=== PATIENT | male | born 1995 | race Caucasian/White ===

== ENCOUNTER 2020-05-18 22:25 | Outpatient (REF) | payer SELFPAY ==
[2020-05-18 20:13] LABS: HCT 48.3 % (40.0-50.0); HGB 15.8 g/dL (13.5-17.5); MCH 29.3 pg (27.0-33.0); MCHC 32.7 % (32.0-36.0); MCV 89.6 fL (80-95); MPV 10.8 fL (8.0-11.0); Platelet Count 257 10^3/uL (130-400); RBC 5.39 10^6/uL (4.36-5.78); RDW 12.3 % (11.8-14.1); RDW-SD 40.1 fL; WBC 8.66 10^3/uL (4.4-10.8)
[2020-05-18 20:26] LABS: ALT 25 U/L (16-63); AST 18 U/L (15-37); Albumin 4.3 g/dL (3.4-5.0); Alkaline Phosphatase 86 U/L (46-116); Anion Gap 8.5 mmol/L (3-11); BUN 10 mg/dL (7-18); Bilirubin, Total 0.6 mg/dL (0.2-1.0); CO2 28.5 mmol/L (21.0-32.0); CREATININE 1.1 mg/dL (0.70-1.30); Calcium 8.9 mg/dL (8.5-10.1); Chloride 103 mmol/L (98-107); Glucose 104 mg/dL (74-106); Lipase 212 U/L (73-393); Potassium 3.9 mmol/L (3.5-5.1); Sodium 140 mmol/L (136-145); Total Protein 7.6 g/dL (6.4-8.2)
== END 2020-05-18 22:26 | disposition home or self-care (01) ==
LOC: NCHCN 22:25
PROVIDERS: PCP Nurse Practitioner Family; Visit Provider Family Medicine
DX: K27.9 Peptic ulcer, site unspecified, unspecified as acute or chronic, without hemorrhage or perforation (principal)
CPT/HCPCS: 80053; 83690; 85027

== ENCOUNTER 2020-10-10 03:49 | Emergency (ER) | payer SELFPAY ==
--- NOTE | 2020-10-10 03:54 | W.ED.GENAD ---
Discharge Plan Disposition Patient Disposition: HOME Condition: Good Discharge Details Clinical Impression: Foreign body in eye, Corneal rust ring of left eye Primary Care Provider: Kimmy Winters ED Provider: Jose Alfredo Childs [place] Meds and New Rx's Prescriptions: New erythromycin 5 mg/gram (0.5 %) ointment 0.5 inch ophthalmic (eye) Q4H Qty: 3.5 RF: 0 Continued omeprazole 20 mg Capsule,Delayed Release(Dr/Ec) 20 mg PO DAILY RF: 0 Discharge Instructions Instructions: Eye Foreign Body (ED) Additional Instructions: The piece of metal has left a residual rust ring. Use the erythromycin ointment every 4-6 hours. Call [facility] today for follow-up for removal of rust ring. Return to ED for significantly worsening eye pain, change in vision, other concerns. Referrals: [facility] [Outside] Medical Decision Making Small metallic foreign body noted left eye almost center of pupil. Rust ring present. With slit lamp use, after tetracaine drops applied, metal removed with cotton tip applicator. Small metallic pieces seem to be left behind given that this was cable. I was irrigated with saline. Examined under slit lamp again. Residual rust ring present but no visualization of metallic foreign body at this point. Corneal defect present. Erythromycin ointment started. Patient referred to [facility] for follow-up and removal of rust ring. Return to ED for any change in vision, worsening eye pain, other concerns. Tetanus updated prior to discharge. HPI General Mode of arrival: ambulatory. Date/Time Provider Initiated Documentation: 10/10/20 03:53. Limitations to Documentation: no limitations. Information obtained by: patient and RN notes reviewed. HPI Narrative: Patient presents to ED with left eye pain secondary to getting a piece of metal in it this afternoon. He has been attempting to remove it all evening. He has been unsuccessful. Comes in early this morning because of continued pain and foreign body sensation. This is a piece of scatter table that got in his eye as he was trying to cut through the cable. He is unsure of his last tetanus. Related Data Home Medications Medication Instructions Recorded Confirmed erythromycin 0.5 inch OPHTHALMIC (EYE) Q4H #3.5 10/10/20 g omeprazole 20 mg PO DAILY 10/10/20 10/10/20 Previous Rx's Medication Instructions Recorded erythromycin 0.5 inch OPHTHALMIC (EYE) Q4H #3.5 10/10/20 g Allergies Allergy/AdvReac Type Severity Reaction Status Date / Time No Known Allergies Allergy Unverified 10/10/20 04:06 Review of Systems Constitutional Constitutional: Denies fever(s) and Denies headache(s) Eyes Eyes: Denies change in vision and Reports eye pain ENT Ears, Nose, Mouth, and Throat: Denies headache(s) Cardiovascular Cardiovascular: Denies dyspnea Respiratory Respiratory: Denies cough and Denies dyspnea Neurologic Neurologic: Denies headache(s) PFSH Medical History Migraine Social History Smoking/Tobacco Use Status: Current every day Tobacco Type: cigarettes Smoking risk assessment performed?: Yes Alcohol Intake: current Alcohol Intake frequency: a few times a month Drug use: Occasionally Substance use type: marijuana Do you feel safe at home: Yes Do you feel safe in your relationship?: Yes Exam Const General: cooperative, comfortable and no acute distress HENMT Head: normocephalic and atraumatic Face and sinus: normal facial exam Eyes Periorbital: periorbital findings normal Eyelids: eyelids normal Conjunctivae: conjunctival abnormality left conjunctival injection Sclera: sclerae normal Cornea: corneas abnormal on the left abrasion and foreign body metallic and with rust ring present Pupils: PERRL EOM: EOM intact bilaterally Neck Neck: trachea midline and supple Resp Effort & Inspection: normal respiratory effort Neuro General: moves all extremities Cognition: normal cognition Speech: speech normal Gait: normal gait Procedures FB Removal Eye Location: eye (L) Topical anesthetic used: tetracaine Foreign body: metal Evidence of corneal penetration: No Technique: irrigation and cotton tip swab Procedure performed under: slit-lamp Post-procedure medication: ophthalmic antibiotic Patient tolerated procedure: well Complications: residual rust ring
[2020-10-10 03:58] VITALS: BP 148/96; PULSE 77; RESP 16; TEMP 36.4; O2SAT 100
[2020-10-10] MEDS: Tetracaine 0.5% 4 ML BTL (04:11)
[2020-10-10] MEDS: Erythromycin Ophth Oint 3.5 GM TUBE (04:13)
== END 2020-10-10 04:55 | disposition home or self-care (01) ==
PROVIDERS: Emergency Provider Emergency Medicine; PCP Nurse Practitioner Family
DX: T15.02XA Foreign body in cornea, left eye, initial encounter (principal); W45.8XXA Other foreign body or object entering through skin, initial encounter
CPT/HCPCS: 90471; 99283

== ENCOUNTER 2021-09-28 10:55 | Emergency (ER) | payer SELFPAY ==
[2021-09-28 11:00] VITALS: BP 147/74; PULSE 81; RESP 16; TEMP 36.5; O2SAT 99
--- NOTE | 2021-09-28 11:19 | ED.GENADUL_ITS ---
Discharge Plan Disposition Patient Disposition: HOME Condition: Improving Discharge Details Clinical Impression: Strain of muscle of right groin region Primary Care Provider: Kimmy Winters ED Provider: Adair Díaz Home Meds and New Rx's Prescriptions: New diclofenac sodium [Voltaren Arthritis Pain] 1 % gel 2 g topical BID 7 Days Qty: 100 0RF Rx Instructions: apply to single elbow, wrist or hand; for hand includes palm/fingers/back of hand Discharge Instructions Instructions: Muscle Strain (ED) Additional Instructions: Jg bandage while awake and out of bed. This should be removed for bedtime and sleeping. Apply heat and gentle massage to area. Voltaren cream twice daily as prescribed, this likely will be available [id number]. Work note enclosed. Return for any acute concerns or if you develop worsening pain. 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 There is no evidence of a hernia, of which he was concerned. He has reproducible tenderness along the muscle belly and its origin on the anterior pelvic brim.. Patient placed in Jg bandage, will have him off work for 2 days and light duty for 1 week. Discussed with him home management and return precautions HPI General Mode of arrival: ambulatory . Date/Time Provider Initiated Documentation: 09/28/21 10:56 . Limitations to Documentation: no limitations . Information obtained by: patient . History of Present Illness 26 year old M presents to the emergency department with the chief complaint of Right groin pain, no mass, described as moderate, Quality is described as dull and constant, and is localized to the right and lower extremity. Patient reports no radiation. Patient started experiencing this hour(s) and it has been constant. Rest improves symptom(s), Movement worsens symptoms . Patient notes denies rash, syncope and weakness. Patient did receive the following treatments prior to arrival, none Related Data Home Medications Medication Instructions Recorded Confirmed diclofenac sodium 1 % topical gel 2 g topical BID 7 days #100 grams 09/28/21 (Voltaren Arthritis Pain) Previous Rx's Medication Instructions Recorded diclofenac sodium 1 % topical gel 2 g topical BID 7 days #100 grams 09/28/21 (Voltaren Arthritis Pain) Allergies Allergy/AdvReac Type Severity Reaction Status Date / Time No Known Allergies Allergy Unverified 10/10/20 04:06 General Stated Complaint: Orthopedic DENISE: 4 Review of Systems Narrative: No rash, no change to urine, otherwise well, 6 systems were reviewed and - PFSH All Active Problems (Updated 09/28/21 @ 11:22 by Adair Díaz MD) Foreign body in eye (Acute) Corneal rust ring of left eye (Acute) Strain of muscle of right groin region (Acute) Medical History Migraine Social History Smoking/Tobacco Use Status: Former Tobacco Use Smoking risk assessment performed?: Yes Alcohol Intake: never Drug use: Occasionally Substance use type: marijuana Do you feel safe at home: Yes Do you feel safe in your relationship?: Yes Exam Narrative Exam Narrative: GEN: awake, alert, oriented 3. Pleasant, well groomed, interactive. HEAD: Normocephalic, atraumatic ENT: Mucous membranes moist, oropharynx unremarkable, External ear exam unremarkable EYES: PERRL, EOMI NECK: Full ROM, no GENE, no menigismus CHEST/RESP: No respiratory ABDOMEN: Soft, nontender, no mass. +Bowel sounds. Testes descended bilaterally. No inguinal hernia. Tenderness along the right medial thigh and origin of the groin muscles EXT: Full ROM, no edema, no rash, right medial thigh tenderness as above Neuro: Grossly normal neurologic exam, conversant, interactive. Psych: Speech fluent, thoughts congruent, affect normal Course Vital Signs Vital signs: Vital Signs Temperature 36.5 C 09/28/21 11:00 Pulse 81 09/28/21 11:00 Respiratory Rate 16 09/28/21 11:00 Blood Pressure 147/74 H 09/28/21 11:00 Pulse Oximetry 99 09/28/21 11:00 Temperature 36.5 C 09/28/21 11:00 Pulse 81 09/28/21 11:00 Respiratory Rate 16 09/28/21 11:00 Respiratory Effort 09/28/21 11:04 Blood Pressure 147/74 H 09/28/21 11:00 Pulse Oximetry 99 09/28/21 11:00 Pain Level 3 09/28/21 11:00 Comment 09/28/21 11:00
== END 2021-09-28 11:28 | disposition home or self-care (01) ==
PROVIDERS: Emergency Provider Emergency Medicine; PCP Nurse Practitioner Family
DX: S39.011A Strain of muscle, fascia and tendon of abdomen, initial encounter (principal); Z87.891 Personal history of nicotine dependence; X58.XXXA Exposure to other specified factors, initial encounter
CPT/HCPCS: 99282

== ENCOUNTER 2021-10-30 08:04 | Emergency (ER) | payer SELFPAY ==
[2021-10-30 08:10] VITALS: BP 138/90; PULSE 79; RESP 14; TEMP 36.8; O2SAT 100
--- NOTE | 2021-10-30 08:28 | ED.GENADUL_ITS ---
Discharge Plan Disposition Patient Disposition: HOME Condition: Stable Discharge Details Clinical Impression: Back pain, Muscle spasm, Lumbar disc herniation Primary Care Provider: Kimmy Winters ED Provider: Aure Kramer Discharge Instructions Instructions: Muscle Spasm (ED), Back Pain (ED) Additional Instructions: Your labs are reassuring here today. Your MRI shows a small L5-S1 disc herniation patient without significant nerve compression. Your back pain is likely associated with your chronic discomfort in the setting of acute muscle spasms. Please encourage hydration. You may continue with Tylenol and ibuprofen as needed for discomfort. Please take as directed on the packaging. You may augment this with the methocarbamol as prescribed to help with muscle spasm. Please not drive will take this medication, keep out of reach of children and use only as directed. He may also try topical agents such as heat, ice, Lidoderm patch. I have referred you to physical therapy, referral is attached. Please follow-up with primary care in the next 2 weeks for reevaluation. If you develop increased pain, weakness, change in bowel or bladder habits, sensation changes or other new/worsening symptoms seek care urgently once again. Please try to avoid heavy lifting. Stand Alone Forms: Physical Therapy Referral, Work Release Referrals: Kimmy Winters [Primary Care Provider] - Discharge Data Discharge Date/Time-TO BE ENTERED AT DEPARTURE: 10/30/21 15:48 Medical Decision Making Patient is a pleasant 26-year-old gentleman with past medical history signi ficant for herniated disc of lumbar spine, presenting today with chief complaint of back pain. He describes an acute on chronic discomfort. Diagnosed with herniated disc several years ago. States he was treated with muscle relaxers, steroids and physical therapy and pain has been manageable since then. However, few months ago he began having increased discomfort and indicates that both the mid thoracic as well as the upper lumbar spine is area of maximal discomfort. He states that the pain has progressively worsened to the point that now he is having difficulty going to work or getting out of bed. States over the weekend he began having rigors and sweats. Did not check his temperature. Endorses anorexia. No change in bowel or bladder habits. Patient denies any new trauma to the back although he does state that he and his significant other are moving as she is , he had to do all of the heavy lifting and believes this may have contributed to the increased discomfort. 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 Reports that over the past week he has had increasing weakness and tremulousness in the RLE. No sensory changes or change in bowel/bladder habits. Also endorses some shooting pains to the left hand which is new for him. Reports it primarily goes between the digits. Patient denies any IV drug abuse, immunocompromising risk factors. No recent illness. On exam, patient appears uncomfortable. No other evidence to suggest focal infection and patient denies any sick contacts. Lungs are clear, normal cardiac exam, abdomen is benign. No saddle paresthesias. With strength testing of lower extremities, patient does have tremulous and weaker ability to flex at the hip on the right side compared to the left. With palpation on midline, patient had an area of mid thoracic and upper lumbar that were so point tender if he became lightheaded and had to lay down. We will continue remaining of the exam after patient's been able to recover. Patient did drive himself here today, is hoping to able to drive home. We will give Tylenol and ibuprofen as well as lidocaine patch to help with discomfort. Plan steroids at this time until I have further information. I am concerned for potential epidural abscess and feel that moving forward with MRI would be appropriate at this time. I did touch base with radiologist who recommended plain film in adjunct to the MRI. Patient also reports he does not have insurance and I have asked her care management team to help with this. Alternative to epidural abscess being the source of fevers, also considered more of a metabolic cause as the patient reports he does eat frequently, has always had low BMI and tends to be very sweaty. Possible thyroid disorder, mom does have history of thyroid disorder for the patient, we will screen with a TSH and reflex T4. Radiologist recommends both plain films and MRI. Care management at bedside to discuss patient not actively haing insurance, he is interested in getting help with this. Labs reviewed, no significant abnormalitiees. Plain films reviewed by radiolgoist: FINDINGS: Three views of the thoracic spine and five views of lumbosacral spine were obtained.? The intervertebral disc spaces appear fairly well maintained throughout.? No erosive or destructive bony lesion seen.? No evidence of spondylolysis or spondylolisthesis in the lumbar region. IMPRESSION: Negative examination of thoracic and lumbar spine. FINDINGS: MR examination of thoracic spine was performed according to the usual protocol with additional pre and post contrast T1 fat sat imaging.? No bony signal abnormality seen.? No enhancing lesion identified in thoracic region.? Normal appearance and signal spinal cord with no focal lesion identified.? No disc herniation seen.? No central canal spinal stenosis.? No neural foraminal stenosis.? No epidural collection or enhancement. IMPRESSION: Negative thoracic spine MRI including pre and post contrast T1 fat sat imaging. MRI reviewed by radiologist: FINDINGS: MR examination lumbosacral spine was performed according to the usual protocol with additional post contrast axial and sagittal T1 weighted imaging. The conus medullaris appears intact. No significant bony signal abnormality seen.? No enhancing lesion identified. There is a mild central disc herniation which is broad-based involving L5-S1 intervertebral disc.? Otherwise the discs are unremarkable in appearance.? There may be mild impingement on the left S1 nerve root by the L5-S1 disc herniation.? Please correlate clinically. No central canal spinal stenosis.? No neural foraminal stenosis.? No epidural enhancement. IMPRESSION: Mild L5-S1 disc herniation, please see above discussion.? No other significant findings. FINDINGS: Three views of the thoracic spine and five views of lumbosacral spine were obtained.? The intervertebral disc spaces appear fairly well maintained throughout.? No erosive or destructive bony lesion seen.? No evidence of spondylolysis or spondylolisthesis in the lumbar region. IMPRESSION: Negative examination of thoracic and lumbar spine Discussed with patient. His mom is now at bedside. We discussed findings. Likely exacerbvation of chronic injury. Will give muscle relaxer to help with discomfort. Mom is going to drive home. He voices furstrations about hte lack of findings, we discussed the difficulty with chronic back pain. The pain sounds to be more chronic and consistent at this time. We did discuss referral to pain managmeent for the chronic pain. For now, will refer to PT, have him try to reduce heavy lifting for the time being. 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 I recommended that he discuss how to lift in a more protective and appropriate manner to prevent further injury. I encouraged close f/u with PCP. Advised he continue with OTC options, heat/ice, massage. Will give muscle relaxer to help with spasm/pain. Advised not to drive with this or drink ETOH. Strict return precuations discussed. Encouraged close f/u. All of his quesitons and concerns were addressed, he is in agreement with this plan. HPI General Mode of arrival: ambulatory . Date/Time Provider Initiated Documentation: 10/30/21 08:17 . Limitations to Documentation: no limitations . Information obtained by: patient, RN notes reviewed and old records reviewed . History of Present Illness 26 year old M presents to the emergency department with the chief complaint of back pain, described as severe and similar to prior episodes (has hx of herniated discs), with intensity rated at 10. Quality is described as sharp, and is localized to the back. Patient extremity. Patient started experiencing this month(s) (has had chronic pain for years with exacerbation over recent months) and it has been constant. Immobilization improves symptom(s), Movement worsens symptoms . Patient notes fever/chills and weakness (feels that RLE is becoming more weak and has increased pain the LLE); denies chest pain, cough, diaphoresis, malaise, nausea/vomiting, rash and shortness of breath. Patient did receive the following treatments prior to arrival, none Related Data Allergies Allergy/AdvReac Type Severity Reaction Status Date / Time No Known Allergies Allergy Unverified 10/10/20 04:06 General Stated Complaint: Nk/Back Pain DENISE: 4 Review of Systems Constitutional Constitutional: Reports as per HPI, Denies chills, Denies frequent falls and Denies headache(s) ENT Ears, Nose, Mouth, and Throat: Denies headache(s) Cardiovascular Cardiovascular: Denies chest pain, Denies dyspnea and Denies dyspnea on exertion Respiratory Respiratory: Denies cough, Denies dyspnea and Denies dyspnea on exertion Gastrointestinal Gastrointestinal: Denies abdominal pain, Denies change in bowel habits and Denies fecal incontinence Genitourinary Genitourinary: Reports as per HPI, Denies urinary hesitancy and Denies urinary incontinence Musculoskeletal Musculoskeletal: Reports as per HPI, Reports back pain and Reports stiffness Integumentary/Breasts Skin/Breast: Reports as per HPI and Denies rash Neurologic Neurologic: Reports as per HPI, Denies frequent falls, Denies headache(s) and Denies localized weakness PFSH All Active Problems (Updated 10/30/21 @ 15:08 by SHELTON Castrejon) Foreign body in eye (Acute) Corneal rust ring of left eye (Acute) Back pain (Acute) Muscle spasm (Acute) Lumbar disc herniation (Acute) Medical History Migraine Social History Smoking/Tobacco Use Status: Former Tobacco Use Smoking risk assessment performed?: Yes Alcohol Intake: current Alcohol Intake frequency: a few times a month Drug use: Daily Substance use type: marijuana Do you feel safe at home: Yes Do you feel safe in your relationship?: Yes Exam Const General: cooperative, healthy appearing, uncomfortable, no acute distress, well developed and well groomed Nutritional Appearance: average body habitus and well nourished Orientation: alert and awake Eyes General: appearance normal, both eyes and all related structures Neck Neck: normal visual inspection, full ROM, no lymphadenopathy and no meningeal signs Resp Effort & Inspection: normal respiratory effort and able to speak in complete sentences Auscultation: clear to auscultation bilaterally, no rales, no rhonchi and no wheezes Cardio Rate: regular rate Rhythm: regular rhythm Heart Sounds: S1 normal and S2 normal GI Inspection: normal to inspection Palpation: soft, no hepatosplenomegaly and nontender Back/Spine/Pelvis Back: no CVA tenderness Cervical Spine: normal cervical lordosis, cervical ROM normal, No cervical muscular tenderness, No pain with cervical ROM, No cervical spasm, No cervical spinal tenderness and No step off deformity Thoracic/Lumbar Spine: thoracic and lumbar spine normal to inspection, No thoraco-lumbar ROM normal, No straight leg raise negative bilaterally (positive on RLE), pain with thoraco-lumbar ROM, paraspinal tenderness (fairly diffuse pain, worse along left paraspinal area), thoracic spinal tenderness and lumbar spinal tenderness Pelvis: no pain with anterior-posterior compression and no pain with lateral compression Skin General skin exam: no rashes or lesions noted Neuro General: patient alert and patient awake Cognition: normal cognition Speech: speech normal Gait: normal gait Motor: strength not 5/5 throughout (4/5 on RLE with signficant pain), no movement abnormalities noted and no fasciculations Sensory Exam: no sensory deficits noted (no saddle paresthesias) DTR's: Rt Patellar: 2+, Lt Patellar: 2+, Rt Ankle: 2+ and Lt Ankle: 2+ Extrem General: normal to inspection, full ROM, capillary refill normal, no joint enlargement, no pedal edema, no calf tenderness and normal gait Psych Appearance: grossly normal and well kempt Mental Status: mental status grossly normal Speech and Movement: speech and movement normal Course Vital Signs Vital signs: Vital Signs Temperature 36.8 C 10/30/21 08:10 Pulse 79 10/30/21 08:10 Respiratory Rate 14 10/30/21 08:10 Blood Pressure 138/90 10/30/21 08:10 Pulse Oximetry 100 10/30/21 08:10 Temperature 36.8 C 10/30/21 08:10 Temperature Source Tympanic 10/30/21 08:10 Pulse 79 10/30/21 08:10 Respiratory Rate 14 10/30/21 08:10 Respiratory Effort Non-Labored 10/30/21 08:13 Blood Pressure 138/90 10/30/21 08:10 Blood Pressure Position Sitting 10/30/21 08:10 Pulse Oximetry 100 10/30/21 08:10 Oxygen Delivery Method Room Air 10/30/21 08:10 Oxygen Flow Rate 0 10/30/21 08:10 Pain Level 7 10/30/21 08:13 PAWSS Have you Been Recently Intoxicated or Drunk Within the Last 30 days?: No Have you Ever Experienced Previous Episodes of Alcohol Withdrawal?: No Have you ever Experienced Withdrawal Seizures?: No Have you ever Experienced Delirium Tremens(DT)s?: No Have you ever undergone [facility]: No Have you ever Experienced Blackouts?: No Have you ever Combined Alcohol with other Downers within the last 90 days?: No Have you ever Combined Alcohol with any other Substance of Abuse during the last 90 days?: No Positive Blood Alcohol level on Presentation? [PCS.BAL]: No Evidence of Increased Autonomic Activity (i.e. HR>120, tremor, sweating, agitation, nausea)?: No Result: 0
--- NOTE | 2021-10-30 09:00 | DI.MRI_ITS ---
Exam(s) MR LUMBAR SPINE WO/W EXAM: MR LUMBAR SPINE WO/W CLINICAL HISTORY: midline pain, fever, RLE weakness. TECHNIQUE: Multiplanar multisequence MRI was performed. COMPARISON: No exams were available for comparison FINDINGS: MR examination lumbosacral spine was performed according to the usual protocol with additional post c ontrast axial and sagittal T1 weighted imaging. The conus medullaris appears intact. No significant bony signal abnormality seen. No enhancing lesion identified. There is a mild central disc herniation which is broad-based involving L5-S1 intervertebral disc. Ot herwise the discs are unremarkable in appearance. There may be mild impingement on the left S1 nerve root by the L5-S1 disc herniation. Please correlate clinically. No central canal spinal stenosis. No neural foraminal stenosis. No epidural enhancement. IMPRESSION: Mild L5-S1 disc herniation, please see above discussion. No other significant findings. DATA REPOSITORY:
--- NOTE | 2021-10-30 09:00 | DI.MRI_ITS ---
Exam(s) MR THORACIC SPINE WO/W EXAM: MR THORACIC SPINE WO/W CLINICAL HISTORY: midline pain, fever, RLE weakness. TECHNIQUE: Multiplanar multisequence MRI was performed. COMPARISON: No exams were available for comparison FINDINGS: MR examination of thoracic spine was performed according to the usual protocol with additional pre an d post contrast T1 fat sat imaging. No bony signal abnormality seen. No enhancing lesion identified in thoracic region. Normal appearance and signal spinal cord with no focal lesion identified. No d isc herniation seen. No central canal spinal stenosis. No neural foraminal stenosis. No epidural c ollection or enhancement. IMPRESSION: Negative thoracic spine MRI including pre and post contrast T1 fat sat imaging. DATA REPOSITORY:
--- NOTE | 2021-10-30 09:00 | DI.RAD_ITS ---
Exam(s) XR LUMBAR SPINE COMPLETE XR THORACIC SPINE COMPLETE EXAM: XR THORACIC SPINE COMPLETE CLINICAL HISTORY: midline pain, fever, RLE weakness TECHNIQUE: COMPARISON: CR XR LUMBAR SPINE COMPLETE from 10/30/2021 FINDINGS: Three views of the thoracic spine and five views of lumbosacral spine were obtained. The interverteb ral disc spaces appear fairly well maintained throughout. No erosive or destructive bony lesion seen . No evidence of spondylolysis or spondylolisthesis in the lumbar region. IMPRESSION: Negative examination of thoracic and lumbar spine. RADIATION DOSE DELIVERED: Total DLP
--- NOTE | 2021-10-30 09:25 | CMPROGNOTE_ITS ---
- If Service Date Differs Date of service: 10/30/21 Time of Service: 09:25 Care Management Progress Note Benjamín presents in the ED for neck and back pain. At the request of ED provider, KESHAWN meets with Benjamín as he is currently uninsured. Benjamín reports that he works for [employer] and states his employer does not offer health insurance. With his verbal ok, KESHAWN contacts [facility] and speaks with Tish who is agreeable to outreaching to Benjamín while he is in the ED to help him explore his insurance options. KESHAWN also provides Benjamín with a Patient Assistance Application and advises him that he can call the business office at the number on the application to set up a payment plan, should he have a balance remaining after the application is processed.
[2021-10-30] MEDS: Lactated Ringers 1,000 ML 1000 ML IV (09:52)
[2021-10-30 09:54] LABS: Abs Immature Grans 0.01 10^3/uL (0.0-0.06); Absolute Basophil Count 0.03 10^3/uL (0.0-0.2); Absolute Eosinophil Count 0.01 10^3/uL (0.0-0.7); Absolute Monocyte Count 0.52 10^3/uL (0.1-0.8); Absolute Neutrophil Count 1.74 10^3/uL (1.2-6.7); Basophils % 0.8; Eosinophils % 0.3; HCT 49.9 % (40.0-50.0); HGB 16.2 g/dL (13.5-17.5); Immature Grans % 0.3; Lymphocytes % 39.4; MCH 29.1 pg (27.0-33.0); MCHC 32.5 % (32.0-36.0); MCV 90 fL (80-95); Monocytes % 13.6; Neutrophils % 45.6; Platelet Count 188 10^3/uL (130-400); RBC 5.57 10^6/uL (4.36-5.78); RDW 12.2 % (11.8-14.1); RDW-SD 40.2 fL; WBC 3.81 10^3/uL (4.4-10.8)
[2021-10-30 09:59] LABS: ESR 2 mm/hr (0-15)
[2021-10-30 10:26] LABS: ALT 24 U/L (16-63); AST 22 U/L (15-37); Albumin 4.5 g/dL (3.4-5.0); Alkaline Phosphatase 77 U/L (46-116); Anion Gap 7.6 mmol/L (3-11); BUN 16 mg/dL (7-18); Bilirubin, Total 0.3 mg/dL (0.2-1.0); C-Reactive Protein 0.16 mg/dL (0.0-0.3); CO2 30.4 mmol/L (21.0-32.0); CREATININE 1.3 mg/dL (0.70-1.30); Calcium 9.2 mg/dL (8.5-10.1); Chloride 99 mmol/L (98-107); Glucose 94 mg/dL (74-106); Sodium 137 mmol/L (136-145); TSH (W/Ref FT4) 3.19 uIU/mL (0.36-3.74); Total Protein 8.4 g/dL (6.4-8.2)
--- NOTE | 2021-10-30 11:34 | PDOC.ERCMPRO ---
- If Service Date Differs Date of service: 10/30/21 Time of Service: 11:35 Care Management Progress Note SBIRT Screen: Positive for cannabis and nicotine. Pt reports significant hx of drug use including opiates but stopped ten years ago. Pt currently endorses daily cannabis use which he states helps him with pain. We discussed concentrations and dosages with regard to dabbing . Pt states he quit dabbing because it was not having the desired effect for pain management. We discussed pros and cons of medicinal cannabis and Pt was encouraged to follow up with his PCP. Pt notes he is hoping to quit nicotine and cut down on cannabis use anticipating the of a child soon. Pt was provided with resources for counseling and tobacco cessation.
[2021-10-30] MEDS: Ibuprofen 600 MG TAB PO (12:20)
[2021-10-30] MEDS: Acetaminophen 500 MG TAB 1000 MG PO (12:20)
[2021-10-30] MEDS: Normal Saline Flush 10 ML SYR IVP (13:01)
[2021-10-30] MEDS: Lidocaine 5% Patch 1 PATCH TP (15:35)
== END 2021-10-30 15:48 | disposition home or self-care (01) ==
PROVIDERS: Emergency Provider Physician Assistant; PCP Nurse Practitioner Family
DX: M54.9 Dorsalgia, unspecified (principal); M51.26 Other intervertebral disc displacement, lumbar region; M62.830 Muscle spasm of back; R50.9 Fever, unspecified; R53.1 Weakness
CPT/HCPCS: 36415; 72158; 80053; 85652; 96360; 99284; 72072; 72110; 72157; 84443; 85025; 86140

== ENCOUNTER 2023-10-29 19:16 | Emergency (ER) | payer SELFPAY ==
[2023-10-29 19:22] VITALS: BP 125/77; PULSE 84; RESP 22; TEMP 36.7; O2SAT 100
[2023-10-29 19:36] VITALS: BP 125/77; PULSE 84; RESP 22; TEMP 36.7; O2SAT 100
[2023-10-29] MEDS: Ondansetron 4 MG/2 ML VIAL (19:50)
[2023-10-29] MEDS: Lactated Ringers 1,000 ML 1000 ML IV ×2 (20:00→21:46)
--- NOTE | 2023-10-29 20:07 | ED.GENADUL_ITS ---
Discharge Plan Disposition Patient Disposition: Home Condition: Good Discharge Details Clinical Impression: Colitis Primary Care Provider: Kimmy Treadwell ED Provider: Maya Miranda Home Meds and New Rx's Prescriptions: No Action No Known Home Meds Discharge Instructions Instructions: Colitis Additional Instructions: A referral has been made for you to establish care with a primary care provider. If you are unable to have an appointment with PCP within the week, I recommend that you have reassessment performed at the emergency department to make sure y ou are feeling significantly better Return tomorrow morning with stool cultures per instructions by the nurse. We will call you with results of the cultures, which would take a couple of days. Please use the Zofran provided as needed for nausea/vomiting. For discomfort you may use 600 mg ibuprofen 3 times a day and Tylenol 650 mg 3 times a day. Be sure to stay very well-hydrated, drinking plenty of Pedialyte or Gatorlyte, eating a gentle diet as tolerated. Return to emergency care if you develop new severe abdominal pain, blood in your stool or vomit, decreased urine output, feeling very weak, or if you are very worried and need to be rechecked again immediately HPI General Date/Time Provider Initiated Documentation: 10/29/23 19:24 . HPI Narrative: Benjamín is a 28-year-old male who presents to the emergency department today for evaluation of abdominal pain accompanied by shaking chills and nausea/vomiting/diarrhea. He reports that he started feeling unwell yesterday around 9 AM, developed lower back pain since moved to his umbilical area, described as a stabbing pain that is constant but has waves of increasing pain. He also has had countless episodes of diarrhea since yesterday, yellow in color. Today he developed vomiting, has vomited 3 times. No blood in stool or emesis. He reports some dizziness since this morning, says his last p.o. intake was last night. No recorded fever, though he has had shaking chills. Denies congestion, sore throat, cough, chest pain, difficulty breathing, change in urine output, blood in urine. No history of abdominal surgeries or known digestive disorders. He does work in a slaughterhouse, says that it is not uncommon for people to get sick with staph or E. coli. Denies regular alcohol use. Physical exam remarkable for tacky mucous membranes. Patient does have diffuse abdominal tenderness, most notably in the left upper quadrant, epigastric area, and umbilical area. No rebound tenderness/guarding, abdominal ecchymosis, or rigidity. Easy work of breathing, lung sounds clear bilaterally. Normal heart sounds. No CVA tenderness. DDx includes but not limited to: Partial bowel obstruction, appendicitis, pancreatitis, viral gastroenteritis, bacterial gastroenteritis, dehydration, electrolyte imbalance, kidney stones, pyelonephritis I independently interpreted the following tests: CBC, CMP, lipase all reassuring. UA significant for protein ketones, consistent with dehydration. Patient unable to provide stool sample, will provide outpatient sample. CT abdomen/pelvis consistent with colitis. While in the emergency department, Benjamín received IV fluids, 2 L LR. He also received Toradol and Zofran with good improvement of nausea/vomiting and abdominal discomfort. As patient is at high risk of Shiga toxin producing E. coli, discussed with patient holding off on empiric antibiotic treatment until this is ruled out. He is agreeable with plan of care, recommend good hydration at home with Tylenol/ibuprofen and Zofran as needed. Reviewed red flags indicate need for return to emergency care. Related Data Home Medications ?Medication ?Instructions ?Recorded ?Confirmed Unknown [No Known Home Meds] 10/29/23 10/29/23 Allergies Allergy/AdvReac Type Severity Reaction Status Date / Time No Known Allergies Allergy Unverified 10/29/23 19:30 General Stated Complaint: Abd Prob DENISE: 3 Review of Systems Narrative: see HPI Exam Const General: cooperative, comfortable and other (appears weak, tired) HENMT Face and sinus: dry mucous membranes Resp Effort & Inspection: normal respiratory effort and able to speak in complete sentences Auscultation: clear to auscultation bilaterally Cardio Rate: regular rate Rhythm: regular rhythm GI Inspection: normal to inspection and non-distended Palpation: soft and tender in the epigastrum and in the LUQ Auscultation: normal bowel sounds Course Vital Signs Vital signs: Vital Signs Temperature 36.7 C 10/29/23 19:22 Pulse 84 10/29/23 19:22 Respiratory Rate 22 10/29/23 19:22 Blood Pressure 125/77 10/29/23 19:22 Pulse Oximetry 100 10/29/23 19:22 Temperature 36.7 C 10/29/23 19:36 Temperature Source Temporal Artery Scan 10/29/23 19:36 Pulse 84 10/29/23 19:36 Respiratory Rate 22 10/29/23 19:36 Respiratory Effort Normal, Non-Labored 10/29/23 19:30 Blood Pressure 125/77 10/29/23 19:36 Pulse Oximetry 100 10/29/23 19:36 Oxygen Delivery Method Room Air 10/29/23 19:36 Oxygen Flow Rate 0 10/29/23 19:22 Pain Level 7 10/29/23 19:36 Medical Decision Making Imaging Data Radiologic Study: Radiologist's impression: PROCEDURE INFORMATION: Exam: CT Abdomen And Pelvis With Contrast Exam date and time: 10/29/2023 8:52 PM Age: 28 years old Clinical indication: Abdominal pain; Periumbilical TECHNIQUE: Imaging protocol: Computed tomography of the abdomen and pelvis with contrast. Radiation optimization: All CT scans at this facility use at least one of these dose optimization techniques: automated exposure control; mA and/or kV adjustment per patient size (includes targeted exams where dose is matched to clinical indication); or iterative reconstruction. Contrast material: OMNIPAQUE 350; Contrast volume: 100 ml; Contrast route: INTRAVENOUS (IV); COMPARISON: MR THORACIC SPINE WO/W 10/30/2021 1:16 PM FINDINGS: Lungs: Visualized lung bases are clear. Liver: Normal. No mass or intrahepatic biliary ductal dilatation. Gallbladder and biliary ducts: Normal. No calcified stones. No ductal dilation. Pancreas: Normal. No mass or ductal dilation. Spleen: Normal. No splenomegaly. Adrenal glands: Normal. No mass. Kidneys and ureters: Normal. No hydronephrosis, calculus, cyst or mass. Stomach and bowel: Stomach and small bowel are normal. The proximal colon is. The distal colon shows diffuse wall thickening without dilatation. Appendix: Normal appendix visualized in the right lower quadrant. Intraperitoneal space: Unremarkable. No free air. No significant fluid collection. Vasculature: Unremarkable. No abdominal aortic aneurysm or significant atherosclerosis. Lymph nodes: No enlarged retroperitoneal or mesenteric lymph nodes. Urinary bladder: No mass or wall thickening. Reproductive: Unremarkable as visualized. Bones/joints: Unremarkable. No acute fracture. No lytic lesion. Soft tissues: Unremarkable. IMPRESSION: Colonic wall thickening may reflect colitis Quality:SDOH Health Related Social Needs: No Data to Display PFSH All Active Problems (Updated 10/29/23 @ 23:26 by Maya M Shaniqua Gold) Colitis (Acute) Corneal rust ring of left eye (Acute) Foreign body in eye (Acute) Medical History Migraine Social History Smoking/Tobacco Use Status: Former Tobacco Use Smoking risk assessment performed?: Yes Alcohol Intake: current Alcohol Intake frequency: a few times a month Drug use: Daily Substance use type: marijuana Do you feel safe at home: Yes Do you feel safe in your relationship?: Yes
[2023-10-29 20:10] LABS: Abs Immature Grans 0.01 10^3/uL (0.0-0.06); Absolute Basophil Count 0.03 10^3/uL (0.0-0.2); Absolute Eosinophil Count 0.01 10^3/uL (0.0-0.7); Absolute Lymphocyte Count 0.59 10^3/uL (1.2-3.4); Absolute Monocyte Count 0.54 10^3/uL (0.1-0.8); Absolute Neutrophil Count 8.32 10^3/uL (1.2-6.7); Basophils % 0.3 %; Eosinophils % 0.1 %; HCT 47.8 % (40.0-50.0); HGB 15.9 g/dL (13.5-17.5); Immature Grans % 0.1 %; Lymphocytes % 6.2 %; MCH 29.1 pg (27.0-33.0); MCHC 33.3 % (32.0-36.0); MCV 87 fL (80-95); MPV 10.2 fL (8.0-11.0); Monocytes % 5.7 %; Neutrophils % 87.6 %; Platelet Count 211 10^3/uL (130-400); RBC 5.47 10^6/uL (4.36-5.78); RDW 12.5 % (11.8-14.1); RDW-SD 40.3 fL
[2023-10-29] MEDS: Ketorolac 15 MG/ML VIAL IVP (20:15)
[2023-10-29 20:31] LABS: ALT 23 U/L (16-63); AST 20 U/L (15-37); Albumin 4.1 g/dL (3.4-5.0); Alkaline Phosphatase 86 U/L (46-116); Anion Gap 11.9 mmol/L (3-11); BUN 14 mg/dL (7-18); Bilirubin, Total 0.62 mg/dL (0.2-1.0); CO2 22.1 mmol/L (21.0-32.0); CREATININE 1.3 mg/dL (0.70-1.30); Calcium 9.5 mg/dL (8.5-10.1); Chloride 99 mmol/L (98-107); Estimated GFR 76.26 (mL/min/1.73m2); Glucose 113 mg/dL (74-106); Lipase 24 U/L (16-77); Sodium 133 mmol/L (136-145)
[2023-10-29] MEDS: Normal Saline - Diluent 50 ML VIAL IJ (20:53)
[2023-10-29] MEDS: Omnipaque 350 MG/ML 100 ML BTL IJ (20:54)
--- NOTE | 2023-10-29 21:00 | DI.CT_ITS ---
Exam(s) CT ABDOMEN PELVIS W EXAM: CT ABDOMEN PELVIS W CLINICAL HISTORY: periumbilical abd pain, tender to palp. TECHNIQUE: Imaging Protocol: Axial computed tomography images with coronal and sagittal reformatted images were created and reviewed CONTRAST MATERIAL: Intravenous: Omnipaque 350 Contrast volume:100 ml Oral: no COMPARISON: No exams were available for comparison FINDINGS: ABDOMEN and PELVIS: Lung Bases: No acute findings. Liver: Normal density. No suspicious mass. Gallbladder and biliary tract: No radiodense calculus. No biliary dilation. Pancreas: Normal density. No abnormal calcifications or inflammatory process. No evidence of mass. Spleen: Normal. Kidneys: Normal size, contour and axis. Tiny nonobstructing stones noted at the lower poles of both kidneys. No obstructive uropathy. No suspicious masses seen. Adrenal glands: No masses seen. Vasculature: Abdominal aorta non-dilated. Soft tissues: Unremarkable. Bladder: No gross wall thickening. No calculi.No focal mass. Bowel: No obstruction. : Nearly free of stool. Question of wall thickening of the lower descending and sigmoid colon which could indicate colitis. Clinical correlation recommended. Appendix normal. Peritoneal cavity: No ascites. No focal collection. No mesenteric inflammatory response. Bones: Unremarkable for age. Reproductive organs: Unremarkable. Lymph nodes: No pathologically enlarged lymph nodes. IMPRESSION:: The colon is collapsed. There is question of wall thickening of the lower descending a nd sigmoid colon which could indicate colitis. Appendix normal. RADIATION DOSE DELIVERED: Total DLP DATA REPOSITORY: All CT scans at this facility are submitted to the National Radiology Data Registry (NRDR) Dose Index Registry (DIR) with the [employer] (A[employer]). RADIATION OPTIMIZATION: All CT scans at this facility use at least one of these dose optimization te chniques: automated exposure control; mA and/or kV adjustment per patient size (includes targeted exa ms where dose is matched to clinical indication); or iterative reconstruction.
--- NOTE | 2023-10-29 21:39 | DI.VRAD_ITS ---
PROCEDURE INFORMATION: Exam: CT Abdomen And Pelvis With Contrast Exam date and time: 10/29/2023 8:52 PM Age: 28 years old Clinical indication: Abdominal pain; Periumbilical TECHNIQUE: Imaging protocol: Computed tomography of the abdomen and pelvis with contrast. Radiation optimization: All CT scans at this facility use at least one of these dose optimization techniques: automated exposure control; mA and/or kV adjustment per patient size (includes targeted exams where dose is matched to clinical indication); or iterative reconstruction. Contrast material: OMNIPAQUE 350; Contrast volume: 100 ml; Contrast route: INTRAVENOUS (IV); COMPARISON: MR THORACIC SPINE WO/W 10/30/2021 1:16 PM FINDINGS: Lungs: Visualized lung bases are clear. Liver: Normal. No mass or intrahepatic biliary ductal dilatation. Gallbladder and biliary ducts: Normal. No calcified stones. No ductal dilation. Pancreas: Normal. No mass or ductal dilation. Spleen: Normal. No splenomegaly. Adrenal glands: Normal. No mass. Kidneys and ureters: Normal. No hydronephrosis, calculus, cyst or mass. Stomach and bowel: Stomach and small bowel are normal. The proximal colon is. The distal colon shows diffuse wall thickening without dilatation. Appendix: Normal appendix visualized in the right lower quadrant. Intraperitoneal space: Unremarkable. No free air. No significant fluid collection. Vasculature: Unremarkable. No abdominal aortic aneurysm or significant atherosclerosis. Lymph nodes: No enlarged retroperitoneal or mesenteric lymph nodes. Urinary bladder: No mass or wall thickening. Reproductive: Unremarkable as visualized. Bones/joints: Unremarkable. No acute fracture. No lytic lesion. Soft tissues: Unremarkable. IMPRESSION: Colonic wall thickening may reflect colitis. Dictated and Authenticated by: Adair Domínguez MD. Ordering:PARRISH Trejo MD
[2023-10-29 22:29] LABS: Bilirubin Negative (Negative); Blood Trace-intact (Negative); Clarity Clear (Clear); Glucose Negative (Negative); Ketones 80 mg/dL (Negative); Leukocyte Esterase Negative (Negative); Nitrite Negative (Negative); Specific Gravity 1.015 (1.005-1.025); Urobilinogen 0.2 mg/dL (Up to 0.2); pH 6.5 (5-8)
[2023-10-29 22:39] LABS: Bacteria Rare HPF (Negative); Epithelial Cells Rare HPF (Negative); RBC 0-2 HPF (0-2); WBC 0-2 HPF (0-5)
[2023-10-29 22:40] LABS: C & S Indicated? No; Casts 0-2 Hyaline LPF (Negative); Crystals Negative HPF (Negative); Mucus Trace (Negative)
[2023-10-29 23:40] VITALS: BP 121/74; PULSE 66; RESP 16; TEMP 36.9; O2SAT 97
[2023-10-29] MEDS: Ondansetron O.D.T. 4 MG TABEF, 3 TABS/BTL PO (23:41)
--- NOTE | 2023-10-30 02:05 | NUR.NOTE ---
Pt referral sent to PCP per ER FIDELINA Tejeda for a F/U for Flu and Colitis to be seen within 1 week.
--- NOTE | 2023-11-04 15:13 | W.ED.FU ---
Date of service: 11/04/23 Time of Service: 15:14 Follow Up Plan: Call made to patient to discuss Campylobacter positive stool results, unable to speak with patient or leave VM.
== END 2023-10-29 23:40 | disposition home or self-care (01) ==
PROVIDERS: Emergency Provider Nurse Practitioner Family; PCP Nurse Practitioner Family
DX: R10.9 Unspecified abdominal pain (principal); R11.2 Nausea with vomiting, unspecified; R19.7 Diarrhea, unspecified; K52.9 Noninfective gastroenteritis and colitis, unspecified
CPT/HCPCS: 36415; 80053; 83690; 96361; 96374; 96375; 99285; 74177; 81003; 81015; 85025; 99283; J1885; J2405; J3490

== ENCOUNTER 2023-10-30 09:41 | Outpatient (REF) | payer SELFPAY ==
[2023-10-30 12:26] LABS: C Diff PCR Negative (Negative)
[2023-10-30 23:06] LABS: Campylobacter PCR Positive (Negative); Salmonella PCR Negative (Negative); Shiga Toxin PCR Negative (Negative); Shigella/Enteroinvasive Ecoli Negative (Negative)
== END 2023-10-30 09:42 | disposition home or self-care (01) ==
LOC: LBN 09:41
PROVIDERS: PCP Nurse Practitioner Family; Visit Provider Nurse Practitioner Family
DX: K52.9 Noninfective gastroenteritis and colitis, unspecified (principal)
CPT/HCPCS: 87493; 87505; 87177